=== PATIENT | female | born 1970 | race Caucasian/White ===

== ENCOUNTER 2017-11-24 07:52 | Emergency (ER) | payer OTHER ==
[2017-11-24 08:43] LABS: #Basophils 0.1 thou/uL (0.0-0.2); #Eosinphils 0.1 thou/uL (0.0-0.7); #Lymphocytes 1.4 thou/uL (1.20-3.40); #Monocytes 0.3 thou/uL (0.11-0.59); #Neutrophils 4.3 thou/uL (1.40-6.50); %Basophils 0.9 % (0.0-1.0); %Eosinophils 1.1 % (0.0-10.0); %Lymphocytes 23.2 % (21.0-51.0); %Monocytes 5.1 % (0.0-10.0); %Neutrophils 69.7 % (42.0-75.0); Mean Corpuscular HGB CONC 33.4 g/dL (32.0-36.0); Mean Corpuscular Volume 83.8 fL (78.0-98.0); Mean Platelet Volume 9.6 fL (7.4-10.4); Platelet Count 269 thou/uL (130-400); RBC Distribution Width 11.8 % (11.5-14.5); Red Blood Cell (RBC) Count 5.02 mill/uL (4.20-5.40); White Blood Cell (WBC) Count 6.2 thou/uL (4.8-10.8)
[2017-11-24] MEDS ORDERED: Lidocaine Viscous Sol 2% 15 ml UD Cup ONE (08:46)
[2017-11-24] MEDS ORDERED: Mag-Al Plus 1200 MG/1200 MG/120 MG/30 ML UDCUP ONE (08:46)
[2017-11-24] MEDS ORDERED: diphenhydrAMINE 50 MG/ML VIAL ONE (08:47)
[2017-11-24] MEDS ORDERED: Metoclopramide HCl 10 MG/2 ML VIAL ONE (08:47)
[2017-11-24] MEDS ORDERED: methylPREDNISolone Sod Succ/PF 125 MG/2 ML VIAL ONE (08:47)
[2017-11-24 08:53] LABS: ALT (SGPT) 111 U/L (8-55); AST (SGOT) 27 U/L (5-34); Albumin 4.8 g/dL (3.5-5.0); Alkaline Phosphatase 147 U/L (40-150); Anion Gap 15 mmol/L (10-20); BUN (Urea Nitrogen) 14 mg/dL (7.0-18.7); Bilirubin, Total 0.3 mg/dL (0.2-1.2); Calc. Creatinine Clearance 0 mL/min (70-130); Calcium 9.8 mg/dL (7.8-10.44); Carbon Dioxide 24 mmol/L (22-29); Chloride 103 mmol/L (98-107); Estimated GFR-MDRD Greater than 90; Globulin 3.6 g/dL (2.4-3.5); Glucose 118 mg/dL (70-105); Lipase 22 U/L (8-78); Potassium 3.5 mmol/L (3.5-5.1); Protein, Total 8.4 g/dL (6.0-8.3); Sodium 138 mmol/L (136-145)
--- NOTE | 2017-11-24 09:14 | ULT ---
ULTRASOUND GALLBLADDER RIGHT UPPER QUADRANT: Date: 11/24/17 HISTORY: Right upper quadrant pain. COMPARISON: None. FINDINGS: There is cholelithiasis without evidence of cholecystitis. Gallbladder wall thickness is normal. Sono graphic Arambula's sign is negative. Common bile duct is 5.0 mm. Visualized portion of the pancreatic body is normal. Right kidney measures 11.7 x 5.5 x 5.2 cm. The portal vein is patent with antegrade flow. The liver measures 18.0 cm in length. Increased hepati c echotexture. IMPRESSION: 1. Hepatic steatosis. 2. Cholelithiasis. POS: [facility]
[2017-11-24 09:27] LABS: Bilirubin Negative (Negative); Blood, Urine Trace (Negative); Clarity Clear (Clear); Glucose, Urine (Dipstick) Negative (Negative); Leukocyte Negative (Negative); Nitrite Negative (Negative); Protein, Urine (Dipstick) Negative (Neg-Trace); Urobilinogen 0.2 mg/dL (0.2-1.0)
[2017-11-24 09:32] LABS: Pregnancy Test - Urine (BHCG) Negative (Negative); Pregu Control Background? CLEAR/WHITE (CLR/WHITE); Pregu Control Bar Appear? YES (CONTROL BAR)
[2017-11-24] MEDS ORDERED: Ketorolac Tromethamine 30 MG/ML VIAL ONE (09:40)
[2017-11-24 09:43] LABS: RBC/HPF 0-3 HPF (0-3); Squamous Epithelial None Seen HPF (0-3); WBC/HPF 0-3 HPF (0-3)
[2017-11-24 09:44] LABS: Bacteria/HPF None Seen HPF (None Seen)
[2017-11-24] MEDS ORDERED: Ondansetron HCl/PF 4 MG/2 ML Vial ONE (09:44)
== END 2017-11-24 09:50 | disposition home or self-care (01) ==
LOC: SCSER 07:52
DX: K80.20 Calculus of gallbladder without cholecystitis without obstruction (principal); G43.909 Migraine, unspecified, not intractable, without status migrainosus; G62.9 Polyneuropathy, unspecified; F32.9 Major depressive disorder, single episode, unspecified; F41.9 Anxiety disorder, unspecified; F17.210 Nicotine dependence, cigarettes, uncomplicated
CPT/HCPCS: 76705; 80053; 81003; 81015; 81025; 83690; 85025; 96374; 96375; J1200; J1885; J2405; J2765; J2930

== ENCOUNTER 2017-12-22 07:59 | Outpatient (CLI) | payer OTHER ==
[2017-12-22 09:51] LABS: #Basophils 0.1 thou/uL (0.0-0.2); #Eosinphils 0.2 thou/uL (0.0-0.7); #Lymphocytes 2.5 thou/uL (1.20-3.40); #Monocytes 0.4 thou/uL (0.11-0.59); #Neutrophils 2.3 thou/uL (1.40-6.50); %Basophils 1.1 % (0.0-1.0); %Eosinophils 2.9 % (0.0-10.0); %Monocytes 7.8 % (0.0-10.0); %Neutrophils 42.4 % (42.0-75.0); Hemoglobin 12.8 g/dL (12.0-16.0); Mean Corpuscular HGB CONC 34.7 g/dL (32.0-36.0); Mean Corpuscular Hemoglobin 30.5 pg (27.0-31.0); Mean Platelet Volume 8.5 fL (7.4-10.4); Platelet Count 228 thou/uL (130-400); RBC Distribution Width 11.9 % (11.5-14.5); Red Blood Cell (RBC) Count 4.19 mill/uL (4.20-5.40); White Blood Cell (WBC) Count 5.5 thou/uL (4.8-10.8)
[2017-12-22 10:46] LABS: ALT (SGPT) 47 U/L (8-55); AST (SGOT) 38 U/L (5-34); Albumin 4.6 g/dL (3.5-5.0); Alkaline Phosphatase 111 U/L (40-150); Anion Gap 14 mmol/L (10-20); BUN (Urea Nitrogen) 11 mg/dL (7.0-18.7); Bilirubin, Direct 0.1 mg/dL (0.1-0.3); Bilirubin, Total 0.2 mg/dL (0.2-1.2); Calc. Creatinine Clearance 0 mL/min (70-130); Calcium 9.4 mg/dL (7.8-10.44); Carbon Dioxide 25 mmol/L (22-29); Chloride 102 mmol/L (98-107); Estimated GFR-MDRD Greater than 90; Glucose 97 mg/dL (70-105); Potassium 3.4 mmol/L (3.5-5.1); Protein, Total 7.7 g/dL (6.0-8.3); Sodium 138 mmol/L (136-145)
[2017-12-22 10:53] LABS: BHCG - Serum Negative (NEGATIVE); Pregs Control Background? CLEAR/WHITE (CLR/WHITE); Pregs Control Bar Appear? YES (CONTROL BAR)
== END 2017-12-22 08:00 | disposition home or self-care (01) ==
LOC: LABBT 07:59
PROVIDERS: ATTEND Surgery
DX: Z01.812 Encounter for preprocedural laboratory examination (principal); K80.20 Calculus of gallbladder without cholecystitis without obstruction
CPT/HCPCS: 80048; 80076; 84703; 85025

== ENCOUNTER 2017-12-23 12:36 | Day surgery (SDC) | payer OTHER ==
[2017-12-22 08:22] VITALS: BMI 26.9
[~2017-12-23 12:36] MED LIST: Dexamethasone 20 MG/5 ML VIAL ONE; Glycopyrrolate 0.2 MG/ML 5 ML SYRINGE ONE; Lidocaine 1% PF 5 ML VIAL ONE; Ondansetron HCl/PF 4 MG/2 ML Vial ONE; PROPOFOL 200 MG/20 ML VIAL ONE
[2017-12-23] MEDS ORDERED: Bupivacaine/Epinephrine 0.25% 30 ML VIAL ONE (14:37)
[2017-12-23] MEDS ORDERED: CEFAZOLIN/Water 2 GM/20 ML SYRINGE ONE (14:48)
[2017-12-23] MEDS ORDERED: Midazolam HCl 2 mg/2 ml Vial ONE ×2 (15:05→15:09)
[2017-12-23] MEDS ORDERED: Fentanyl 250 MCG/5 ML VIAL ONE (15:09)
[2017-12-23] MEDS ORDERED: Sodium Chloride 0.9% 10 ML ONE ×2 (15:25→17:49)
[2017-12-23] MEDS ORDERED: Fentanyl 100 MCG/2 ML VIAL ONE ×2 (16:27→16:45)
[2017-12-23] MEDS ORDERED: Ketorolac Tromethamine 30 MG/ML VIAL ONE (16:27)
[2017-12-23] MEDS ORDERED: Sodium Chloride For Inhalation 0.9% 3 ML NEB ONE (17:49)
[2017-12-23] MEDS ORDERED: HYDROcodone/Acetaminophen 5/325 mg Tablet ONE (18:04)
--- NOTE | 2017-12-23 23:18 | OP ---
DATE OF PROCEDURE: 12/23/2017 PREOPERATIVE DIAGNOSIS: Symptomatic gallstones. POSTOPERATIVE DIAGNOSIS: Symptomatic gallstones. PROCEDURE: Laparoscopic cholecystectomy. SURGEON: Charly Schmidt M.D. ANESTHESIA: General. ESTIMATED BLOOD LOSS: Minimal. COMPLICATIONS: None. SPECIMEN: Gallbladder. FINDINGS: Chronic cholecystitis. TECHNIQUE: The patient was taken to the Operating Room and laid supine on the Operating Room table. After general anesthetic was obtained, the abdomen was prepped and draped in a sterile fashion. A c urved incision was made below the umbilicus. Cautery was used to dissect down to the umbilical fasci a. Umbilical fascia was incised and held up using a Maral. The abdominal cavity was entered using a Bere clamp. Holding stitch of Vicryl was placed on each side of the fascia. Sanders trocar was pl aced. High-flow pneumoperitoneum was obtained. An upper midline 5-mm port and two right upper quadr ant 5-mm ports were placed under direct camera visualization. The gallbladder was retracted from the gallbladder fossa. The peritoneum of the gallbladder was opened anteriorly and posteriorly. The cr itical view triangle was seen showing only the cystic duct and cystic artery branching from medial to lateral. There were no other branching structures. Two clips were placed proximally on the cystic duct and one laterally. It was cut using laparoscopic scissors. The cystic artery was taken in the same way. Electrocautery was then used to dissect the gallbladder out of the gallbladder fossa. The gallbladder was placed in an Endo catch bag and brought out through the Sanders. There was no bleedi ng or bile in the liver bed. The cystic duct stump and cystic artery stump were intact without evide nce of extravasation or bleeding. All port sites were infiltrated using local anesthesia. All ports were removed under camera visualization. Pneumoperitoneum was let down. The Vicryl was used to mine se the fascial defect below the umbilicus. All incisions were irrigated and closed using 4-0 Monocry l and DermaBond. The patient was en route to Recovery in stable condition. All instrument counts, n eedle counts and lap counts were correct.
== END 2017-12-23 18:25 | disposition home or self-care (01) ==
LOC: SDC 12:36
PROVIDERS: ATTEND Surgery
PROC: 0FT44ZZ Resection of Gallbladder, Percutaneous Endoscopic Approach (ICD-10-PCS; principal; 2017-12-23)
DX: K80.10 Calculus of gallbladder with chronic cholecystitis without obstruction (principal); G47.00 Insomnia, unspecified; G43.909 Migraine, unspecified, not intractable, without status migrainosus; F32.9 Major depressive disorder, single episode, unspecified; M79.1 Myalgia; Z87.891 Personal history of nicotine dependence; Z79.899 Other long term (current) drug therapy; Z88.2 Allergy status to sulfonamides
CPT/HCPCS: 88304; 96374; 96375; 96376; A4216; J1100; J1885; J2001; J2250; J2405; J2704; J3010

== ENCOUNTER 2018-03-22 08:09 | Outpatient (CLI) | payer OTHER ==
--- NOTE | 2018-03-22 12:20 | MMO ---
BILATERAL SCREENING MAMMOGRAM: COMPARISON: Reference is made to prior mammograms, which date back to 12/13/2012. FINDINGS: There is heterogeneously dense breast parenchyma bilaterally, which limits the sensitivity of mammogr aphy and may obscure underlying pathology. There is no new dominant mass, suspicious clustering of m icrocalcification, or architectural distortion. The exam is interpreted with the assistance of CAD. IMPRESSION: BI-RADS 1-Negative. Annual screening mammography recommended. POS: [facility]
== END 2018-03-22 08:10 | disposition home or self-care (01) ==
LOC: SCSMAMMO 08:09
PROVIDERS: ATTEND Family Medicine
DX: Z12.31 Encounter for screening mammogram for malignant neoplasm of breast (principal)
CPT/HCPCS: 77067

== ENCOUNTER 2019-03-27 13:32 | Outpatient (CLI) | payer OTHER ==
--- NOTE | 2019-03-27 17:19 | MMO ---
Bilateral MAMMO Bilat Screen [facility]. CLINICAL HISTORY: Patient is 48 years old and is seen for screening. The patient has no family history of breast cancer. The patient has no personal history of cancer. VIEWS: The views performed were: bilateral craniocaudal with tomosynthesis and bilateral mediolateral oblique with tomosynthesis. FILMS COMPARED: The present examination has been compared to prior imaging studies performed at [facility] on 12/13/2012, 10/31/2014 and 03/22/2018, and at [facility] on 11/07/2014. This study has been interpreted with the assistance of computer-aided detection. MAMMOGRAM FINDINGS: There are scattered fibroglandular densities. There are no suspicious masses, suspicious calcifications, or new areas of architectural distortion. IMPRESSION: THERE IS NO MAMMOGRAPHIC EVIDENCE OF MALIGNANCY. A ROUTINE FOLLOW-UP MAMMOGRAM IN 1 YEAR IS RECOMMENDED. THE RESULTS OF THIS EXAM WERE SENT TO THE PATIENT. ACR BI-RADS Category 1 - Negative MAMMOGRAPHY NOTE: 1. A negative mammogram report should not delay a biopsy if a dominant of clinically suspicious mass is present. 2. Approximately 10% to 15% of breast cancers are not detected by mammography. 3. Adenosis and dense breasts may obscure an underlying neoplasm. Reported by: GENESIS ANDERSON MD Electonically Signed: [id number]
== END 2019-03-27 13:33 | disposition home or self-care (01) ==
LOC: BICMAMMO 13:32
PROVIDERS: ATTEND Family Medicine
DX: Z12.31 Encounter for screening mammogram for malignant neoplasm of breast (principal)
CPT/HCPCS: 77063; 77067

== ENCOUNTER 2021-09-22 00:30 | Emergency (ER) | payer OTHER, SELFPAY | END 2021-09-22 02:10 | disposition home or self-care (01) | LOC: ERS 00:30 | DX: M62.830 Muscle spasm of back (principal); I10 Essential (primary) hypertension; Z79.82 Long term (current) use of aspirin; Z79.899 Other long term (current) drug therapy; Z87.891 Personal history of nicotine dependence; X50.0XXA Overexertion from strenuous movement or load, initial encounter; Y92.89 Other specified places as the place of occurrence of the external cause; Y99.0 Civilian activity done for income or pay | CPT/HCPCS: 99283 ==

== ENCOUNTER 2023-04-30 11:17 | Outpatient (CLI) | payer BC | END 2023-04-30 11:18 | disposition home or self-care (01) | LOC: SCSRAD 11:17 | PROVIDERS: ATTEND Nurse Practitioner Family | DX: M47.26 Other spondylosis with radiculopathy, lumbar region (principal) | CPT/HCPCS: 72100 ==

== ENCOUNTER 2023-06-14 14:42 | Outpatient (CLI) | payer BC | END 2023-06-14 14:43 | disposition home or self-care (01) | LOC: SCSRAD 14:42 | PROVIDERS: ATTEND Internal Medicine Rheumatology | DX: M46.1 Sacroiliitis, not elsewhere classified (principal); R93.7 Abnormal findings on diagnostic imaging of other parts of musculoskeletal system | CPT/HCPCS: 72202 ==

== ENCOUNTER 2024-04-21 13:26 | Outpatient (CLI) | payer BC ==
[~2024-04-21 13:26] MED LIST changes: -Dexamethasone 20 MG/5 ML VIAL ONE; -Glycopyrrolate 0.2 MG/ML 5 ML SYRINGE ONE; -Lidocaine 1% PF 5 ML VIAL ONE; +Magnevist 469MG/ML 20 ML VIAL ONE; -Ondansetron HCl/PF 4 MG/2 ML Vial ONE; -PROPOFOL 200 MG/20 ML VIAL ONE
== END 2024-04-21 13:27 | disposition home or self-care (01) ==
LOC: BICMRI 13:26
PROVIDERS: ATTEND Nurse Practitioner Family
DX: M25.561 Pain in right knee (principal); M25.562 Pain in left knee; M54.50 Low back pain, unspecified; M79.89 Other specified soft tissue disorders
CPT/HCPCS: 36415; 72158; 82565

== ENCOUNTER 2024-06-12 10:29 | Outpatient (CLI) | payer BC | END 2024-06-12 10:30 | disposition home or self-care (01) | LOC: BICMAMMO 10:29 | PROVIDERS: ATTEND Nurse Practitioner Family | DX: Z12.31 Encounter for screening mammogram for malignant neoplasm of breast (principal) | CPT/HCPCS: 77063; 77067 ==